=== PATIENT | female | born 1975 ===

== ENCOUNTER 2018-08-18 18:02 | Inpatient (IN) | payer BC ==
[~2018-08-18] VITALS: Ht 167.6 cm; Wt 65.1 kg
[2018-08-18 18:59] LABS: BASOPHILS 0.3 % (0-2); EOSINOPHILS 1.9 % (0-7); HEMATOCRIT 34.8 % (36.0-48.0); IMMATURE GRANULOCYTES 0.2 % (0-5); LYMPHOCYTES 11.4 % (15-50); MCH 30.5 pg (26.0-34.0); MCHC 34.5 g/dL (31.0-37.0); MCV 88.5 fL (80.0-100.0); MEAN PLATELET VOLUME 9.2 fL (7.4-10.4); MONOCYTES 5.1 % (2-11); NEUTROPHILS 81.1 % (40-80); PLATELET COUNT 290 10x3/uL (130-400); RBC 3.93 10x6/uL (4.00-5.40); RDW 12.5 % (11.5-14.5); WBC 13.1 10x3/uL (4.8-10.8)
[2018-08-18 19:13] LABS: ALBUMIN 2.7 g/dL (3.4-5.0); ALKALINE PHOSPHATASE 56 U/L (46-116); ALT (SGPT) 41 U/L (10-68); BILIRUBIN - TOTAL 0.16 mg/dL (0.2-1.3); CALC OSMOLALITY 267 mosm/kg (275-300); CALCIUM 8.1 mg/dL (8.5-10.1); CARBON DIOXIDE 28.6 mmol/L (21.0-32.0); CHLORIDE - SERUM 99 mmol/L (98-107); CREATININE - SERUM 0.6 mg/dL (0.6-1.3); GLUCOSE 120 mg/dL (74-106); POTASSIUM - SERUM 3.9 mmol/L (3.5-5.1); PROTEIN - SERUM 7.3 g/dL (6.4-8.2); SODIUM 134 mmol/L (136-145); UREA NITROGEN 11 mg/dL (7-18); eGFR NON AFRICAN AMERICAN > 90 mL/min (90-120)
--- NOTE | 2018-08-18 20:00 | NUR ---
PT RESTING ON BED, SPOUSE AT BEDSIDE. NO S/S OF ACUTE DISTRESS NOTED AT THIS TIME.
[2018-08-18 20:54] VITALS: BP 119/67
--- NOTE | 2018-08-18 21:35 | NUR ---
PT AMBULATED TO RESTROOM WITH A STEADY GAIT. PT SPOUSE AT BEDSIDE.
[2018-08-19 00:27] VITALS: BP 128/92; Ht 167.6 cm; Wt 65.1 kg
[2018-08-19 00:54] VITALS: BP 104/57
--- NOTE | 2018-08-19 03:59 | NUR ---
PATIENT LEVAQUIN AND ZOSYN COMPLETED. PATIENT RESTING QUIETLY IN BED.
--- NOTE | 2018-08-19 04:25 | NUR ---
PATIENT UP IN ROOM WAKLING TO RESTROOM, PATIENT EXPRESSED SOME ANXIETY BY BEING HOOKED UP TO IV PUMP. ALL ABT FOR THIS SHIFT COMPLETED, SALINE LOCKED PATIENT PER REQUEST.
[2018-08-19 05:41] VITALS: BP 114/61
[2018-08-19 06:49] LABS: BASOPHILS 0.3 % (0-2); EOSINOPHILS 1.1 % (0-7); HEMATOCRIT 32.5 % (36.0-48.0); IMMATURE GRANULOCYTES 0.3 % (0-5); LYMPHOCYTES 11.8 % (15-50); MCH 29.7 pg (26.0-34.0); MCHC 33.8 g/dL (31.0-37.0); MCV 87.8 fL (80.0-100.0); MONOCYTES 5.9 % (2-11); NEUTROPHILS 80.6 % (40-80); PLATELET COUNT 264 10x3/uL (130-400); RDW 12.7 % (11.5-14.5); WBC 11.2 10x3/uL (4.8-10.8)
[2018-08-19 07:04] LABS: APTT 49.2 SECONDS (22.8-39.4); INR 1.39 (0.85-1.17); PROTIME 16.5 SECONDS (11.6-15.0)
[2018-08-19 07:11] LABS: CALC OSMOLALITY 267 mosm/kg (275-300); CALCIUM 8.1 mg/dL (8.5-10.1); CARBON DIOXIDE 26.1 mmol/L (21.0-32.0); CHLORIDE - SERUM 100 mmol/L (98-107); CREATININE - SERUM 0.6 mg/dL (0.6-1.3); GLUCOSE 132 mg/dL (74-106); POTASSIUM - SERUM 4.2 mmol/L (3.5-5.1); SODIUM 134 mmol/L (136-145); eGFR NON AFRICAN AMERICAN > 90 mL/min (90-120)
[2018-08-19 07:17] LABS: UREA NITROGEN 8 mg/dL (7-18)
[2018-08-19 08:18] VITALS: BP 103/62
[2018-08-19 13:08] VITALS: BP 100/54
--- NOTE | 2018-08-19 19:27 | NUR ---
PATIENT RESTING COMFORTABLY IN BED. RESPIRATIONS ARE EVEN AND UNLABORED. NO S/S OF DISTRESS. NO C/O PAIN. CALL LIGHT WITHIN REACH. WILL CPOC.
[2018-08-19 21:33] VITALS: BP 98/50
--- NOTE | 2018-08-19 22:55 | HP ---
PATIENT: VIJAYA KENDALL MEDICAL RECORD: [id number] ACCOUNT: [id number] LOCATION:[address] : [birth year] ADMISSION DATE: 08/18/18 PCP: ARSENIO BAXTER MD HISTORY AND PHYSICAL EXAMINATION DATE OF ADMISSION: 08/18/2018 CHIEF COMPLAINT: Cough, congestion, fever, and wheeze. HISTORY: This is a 43-year-old female who has had no primary care provider. She has been going to the walk-in clinic on [facility] [place] and was diagnosed with pneumonia. She was placed on Augmentin. She had gotten a couple of injections of Rocephin and a shot of steroids. She continues with cough, congestion, fever, and wheeze now for over a week. She presented to the Emergency Department, where white count was 13,100. The rest of her lab was normal except her D-dimer was a little elevated. Chest x-ray showed bibasilar airspace opacities and a CTA of the chest with PE protocol showed no PE. There was diffuse bilateral pneumonia seen. The patient is admitted for failed outpatient therapy for pneumonia. PAST MEDICAL AND SURGICAL HISTORY: Essentially unremarkable. PAST SURGICAL HISTORY: She has had 3 procedures for endometriosis. HOME MEDICATIONS: Augmentin twice a day. DRUG ALLERGIES: None. HABITS: She has smoked and still smokes a little. Denies any alcohol or drug use. SOCIAL HISTORY: She is . [place] her [place], working with [employer]. FAMILY HISTORY: Her parents are alive and have no significant medical problems. REVIEW OF SYSTEMS: GENERAL: No major weight changes. HEENT: No particular sinus or allergy problems. RESPIRATORY: No history of asthma, emphysema, or pneumonia. CARDIAC: No chest pain or palpitations. GASTROINTESTINAL: No diarrhea, constipation, or heartburn. GENITOURINARY: No significant problems there except she has had endometriosis and had procedures for that. MUSCULOSKELETAL: No significant joint aches and pains. NEUROLOGIC: No seizures or migraines. PSYCHIATRIC: Denies depression or melancholia. PHYSICAL EXAMINATION: VITAL SIGNS: Temperature 100.0, heart rate 110 in the ER, and blood pressure was fine. Currently, her temperature is 99.1 with pulse of 100, respirations 18, blood pressure 100/54, and O2 sat 92%. GENERAL: She is awake and alert. She does not appear in acute distress. Her is in the room. SKIN: Warm and dry. HISTORY AND PHYSICAL [id number] VIJAYA KENDALL HEENT: Grossly within normal limits. NECK: Supple. HEART: Regular rate and rhythm. LUNGS: Fairly clear. No wheezes or rales. ABDOMEN: Soft and nontender. EXTREMITIES: No edema. LABORATORY DATA: CBC showed white count of 13,100, hemoglobin 12, and hematocrit 34.8. Basic metabolic panel is all normal. Liver functions are all normal. ABG showed pH of 7.45, pCO2 of 37.9, and pO2 of 61. DIAGNOSTIC DATA: Chest x-ray with bibasilar airspace opacities. CTA of the chest showed no PE. There was diffuse bilateral pneumonia. ASSESSMENT: Bilateral pneumonia, failed outpatient therapy. PLAN: She is admitted and started on IV Levaquin. She is given breathing treatments and oxygen. Blood cultures have been done. Other tests or procedures as warranted. TRANSINT:[id number] Voice Confirmation ID: [id number] DOCUMENT ID: [id number] CLEMENTINE DAY MD at 2255 CC: [id number] DICTATION DATE: 08/19/18 1523 MANAGER OF HUMAN RESOURCES: 08/19/18 1634 ADM IN [facility] [address] [id number]
[2018-08-20] VITALS (7 sets, daily range): BP systolic 88–112; BP diastolic 46–60
--- NOTE | 2018-08-20 02:25 | NUR ---
PATIENT RESTING COMFORTABLY IN BED. RESPIRATIONS ARE EVEN AND UNLABORED. NO S/S OF DISTRESS. NO C/O PAIN. CALL LIGHT WITHIN REACH. WILL.CPOC.
--- NOTE | 2018-08-20 07:10 | NUR ---
RECEIVED REPORT. ASSUMED CARE OF PATIENT. CALL LIGHT WITHIN REACH. SITTING UP IN BED RECEIVING A BREATHING TREATMENT. RESP EVEN AND UNLABORED. REQUESTING FRESH ICE WATER. NO DISTRESS. IV FLUIDS INFUSING ORDERED.
--- NOTE | 2018-08-20 07:25 | NUR ---
ICE WATER PROVIDED REQUESTED. NO DISTRESS.
--- NOTE | 2018-08-20 11:34 | NUR ---
SITTING IN BED WITH ATTENTION TOWARD CELLPHONE. NO DISTRESS. IV FLUIDS INFUSING ORDERED.
--- NOTE | 2018-08-20 15:03 | NUR ---
PATIENT OUT OF ROOM AMBULATING ON UNIT. NO DISTRESS.
--- NOTE | 2018-08-20 17:17 | NUR ---
RESTING IN BED. PATIENT JUST RETURNED TO ROOM AFTER AMBULATING AGAIN ON UNIT. CALL LIGHT WITHIN REACH. IV FLUIDS CONTINUE TO INFUSE ORDERED. NO DISTRESS.
--- NOTE | 2018-08-20 19:42 | NUR ---
PT UP ON SIDE OF BED, EYES OPEN, VISITOR AT BEDSIDE, PT UP ADLIB, IV RAC 20G NS RUNNING, BILATERAL PNEMONIA, FLUIDS AND CALL LIGHT WITHIN REACH
--- NOTE | 2018-08-20 22:37 | NUR ---
PT IN BED EYES OPEN, SHOWER TAKEN, 2100 IV ZOSYN STARTED OVER 30MIN, THEN LEVAQUIN 750MG WILL BE STARTED, FLUIDS AND CALL LIGHT WITHIN REACH
--- NOTE | 2018-08-21 02:23 | NUR ---
RESTARTED IV TO LEFT HAND WITH 22GA...OPSITE APPLIED AFTER FLUSH AND TAPE TO SECURE
--- NOTE | 2018-08-21 02:26 | NUR ---
PT'S RAC IV BEGAN LEAKING, NEW IV STARTED IN LEFT AC PATENT AND SALINE LOCKED UNTIL ATB AT 0600, DRSG ADHERED TO SKIN AND ALCOHOL CAPS IN USE, RAC REMOVED TIP INTACT, FLUIDS AND CALL LIGHT WITHIN REACH, PT RESTING WITH EYES CLOSED, BREATHING EVEN AND UNLABORED, AROUSES EASILY TO VOICE, NO IMMEDIATE NEEDS NOTED AT THIS TIME.
[2018-08-21 04:09] VITALS: BP 103/55
[2018-08-21 06:54] LABS: BASOPHILS 0.6 % (0-2); EOSINOPHILS 2.8 % (0-7); HEMATOCRIT 32.1 % (36.0-48.0); HEMOGLOBIN 10.8 g/dL (12-16); IMMATURE GRANULOCYTES 0.2 % (0-5); LYMPHOCYTES 31.3 % (15-50); MCH 29.8 pg (26.0-34.0); MCHC 33.6 g/dL (31.0-37.0); MCV 88.7 fL (80.0-100.0); MEAN PLATELET VOLUME 9.4 fL (7.4-10.4); NEUTROPHILS 55.1 % (40-80); RBC 3.62 10x6/uL (4.00-5.40); RDW 13.2 % (11.5-14.5)
[2018-08-21 06:55] LABS: PLATELET COUNT 336 10x3/uL (130-400); WBC 6.5 10x3/uL (4.8-10.8)
--- NOTE | 2018-08-21 08:57 | NUR ---
RESUMING PT CARE, PT IS SITTING UP ON SIDE OF BED ALERT AND ORIENTED X4, CALL LIGHT IN REACH. WILL CONTINUE TO MONITOR AND FOLLOW PLAN OF CARE.
[2018-08-21] MEDS ORDERED: LEVAQUIN750 MG PO (09:06)
[2018-08-21 09:45] VITALS: BP 96/42
--- NOTE | 2018-08-21 09:45 | NUR ---
I have reviewed this patient and I concur with the Shift Assessment completed by the Licensed Practical Nurse today this shift.
--- NOTE | 2018-08-21 13:50 | NUR ---
IV REMOVED, D/C INSTRUCTIONS GIVEN AND PT TAKEN TO CAR VIA WHEELCHAIR
--- NOTE | 2018-08-21 17:35 | MORECARE ---
CASE MANAGEMENT DISCHARGE SUMMARY PATIENT: VIJAYA KENDALL UNIT: [id number] ADM DATE: 08/18/18 AGE: 43 : [birth year] SEX: F ROOM/BED: D.4854 AUTHOR: ERIK,DOC PHYSICIAN: REFERRING PHYSICIAN: CLEMENTINE DAY MD DATE OF SERVICE: 08/21/18 Discharge Plan Patient Name: VIJAYA KENDALL Facility: [facility]:[place] : 1975 Planned Disposition: Home Anticipated Discharge Date: 08/21/18 Discharge Date: 08/21/2018 Expected LOS: 3 Initial Reviewer: [email or web address] Initial Review Date: 08/21/2018 Generated: 08/21/18 6:35 pm Comments DCP- Discharge Planning Updated by [email or web address]: Kamari Gottlieb on 08/21/18 4:[address] Patient Name: VIJAYA KENDALL Admission Status: ER Accout number: [id number] Admission Date: 08-18-2018 : 1975 Admission Diagnosis:COUGH Attending: CLEMENTINE DAY Current LOS: 3 Anticipated DC Date: 08-21-2018 Planned Disposition: Home Primary Insurance: [employer] EXCHANGE Discharge Planning Comments: CM MET WITH PT IN ROOM TO DISCUSS DISCHARGE PLANNING AND NEEDS. PT REPORTS LIVING AT HOME INDEPENDENTLY WITH HER SPOUSE. PT HAS NO MEDICAL EQUIPMENT AND NO OUTSIDE SERVICES ASSISTING IN THE HOME. CM DISCUSSED AVAILABILITY OF HOME HEALTH, REHAB SERVICES AND MEDICAL EQUIPMENT. PT DENIES DISCHARGE NEEDS, REPORTS HER SON WILL PICK HER UP FOR DISCHARGE HOME. SAILMAKER NURSE NOTIFIED. Commodity Manager: Kamari Gottlieb DCPIA - Discharge Planning Initial Assessment Updated by [email or web address]: Kamari Gottlieb on 08/21/18 5:30 pm * Is the patient Alert and Oriented? Yes * How many steps to enter\exit or inside your home? 0-O / 12-I * PCP DR. BAXTER * Pharmacy [facility] [address] * Preadmission Environment Home with Family * ADLs Independent * Equipment None * Other Equipment NO MEDICAL EQUIPMENT PROVIDER PREFERENCE * List name and contact numbers for known caregivers / representatives who currently or will assist patient after discharge: VANDA KENDALL, SPOUSE, * Verbal permission to speak to the caregivers and representatives has been obtained from the patient. N/A * Community resources currently utilized None * Please name any agencies selected above. NONE * Additional services required to return to the preadmission environment? No * Can the patient safely return to the preadmission environment? Yes * Has this patient been hospitalized within the prior 30 days at any hospital? No Patient Name: VIJAYA KENDALL Page [id number] at 1735 All edits/amendments must be made on the electronic document DICTATION DATE: 08/21/181734 DIE MAKER STAMPING: RE 08/21/181734 RPT#: [id number] DC DATE:08/21/18 STATUS: DIS IN [facility] [address] [place] [address] END OF REPORT
== END 2018-08-21 13:51 | disposition home or self-care (01) | DRG 195 ==
LOC: D.ER 18:02 → D.M2 21:47
PROVIDERS: Emergency Medicine; Family Medicine; ADMIT Family Medicine; ATTEND Family Medicine
DX: J18.9 Pneumonia, unspecified organism (principal); Z72.0 Tobacco use